=== PATIENT | male | born 1950 | race Caucasian/White ===

== ENCOUNTER 2019-09-16 09:54 | Inpatient (IN) | payer MEDICARE, BC ==
[~2019-09-16 09:54] MED LIST: Metoprolol Succinate 50 MG Tab.ER PO ONE
[2019-09-16] MEDS: Dextrose 5%-Lactated Ringers 1,000 ML IV SCH ×2 (11:30→18:26)
[2019-09-16] MEDS: Atropine/Diphenoxylate 0.025-2.5 MG Tab PO PRN ×2 (11:30→18:37)
[2019-09-16] MEDS: Azithromycin 250 MG Tab PO SCH (11:30)
[2019-09-16] MEDS: Acetaminophen 500 MG Tab PO PRN ×2 (11:37→17:24)
[2019-09-16] MEDS: Metoprolol Succinate 50 MG Tab.ER PO SCH (11:39)
[2019-09-16] MEDS: Omeprazole 20 MG Cap.CR PO SCH (11:41)
--- NOTE | 2019-09-16 13:15 | HP ---
CHIEF COMPLAINT: Profuse diarrhea. 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 He really did not think that much of it, but the diarrhea became much worse and so was very watery, occasionally formed, loose. No blood. No fever or chills. He had been tolerating fluids. He had been seen by Dr. Krishan Ibrahim, his primary care provider on 09/14/2019. He received 1 liter of IV fluids in the clinic. He denies any recent antibiotic use, except for one prophylactic dental administration, but not certain when that was. He has not traveled out of the country or out of the area. The patient was found to have Campylobacter enteritis by PCR detection method on 09/14/2019. He was negative for C. difficile. His white blood cell count at that time was 4.7, hemoglobin 12.5, MCV 98.1, platelets 199 with 69 segs, 14 lymphocytes. Sodium was 141, potassium 3.3, creatinine 1.2, BUN 18, glucose 106, CO2 of 19. LFTs normal. GFR 60. CRP elevated at 132.4 (normal being 8.0 or less). The patient had been taking many Imodium a day. Since then, the patient has had a difficult time keeping down fluids or Gatorade, feels very burpy, belchy, is becoming weaker. Diarrhea continues. His urine is very dark and he is weak. He had been started on both Flagyl 500 mg twice a day for 5 days and Cipro 250 mg 1 pill twice a day for 5 days. He was able to take those medications the day of clinic appointment as well as yesterday. This morning, he became weaker and came in to be seen by Leslie Mari PA-C in the clinic. No lab work was done. It is noted that his weight has stayed the same. He was noted to have slight rise of his pulse even though he is on a beta krzysztof, he did not take his beta krzysztof today. Today, he feels more weak and unsteady and not safe at home. He lives home alone. The Covid -19 epidemic is just arriving to [place], but he denies any risk factors for this. MEDICATIONS: Hytrin 2 mg one pill at bedtime, Toprol XL 100 mg 1 1/2 pills daily , levothyroxine 137 mcg one pill daily, HCTZ 25 mg one pill daily, Aciphex 20 mg one pill daily,MVI one pill daily, Cipro 250 mg one pill twice a day, Flagyl 500 mg one pill twice a day. ALLERGIES: He has to codeine, nausea, vomiting; hydrocodone causes tachycardia; morphine sulfate causes nausea and vomiting. PAST MEDICAL HISTORY: The patient has hypertension, BPH, chronic anemia. Last colonoscopy was in 2011, chronic iron deficiency, anemia, some duodenitis, he has had hyperlipidemia, obesity, he has had several lipomas from his body, osteoarthritis of his knee, diaphragmatic hernia, bursitis of the shoulders, BPH, elevated calcium score. Has had past abnormal EKG. 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 He has had excision of lipomas on 04/17/2014. He has had a TURP laser-assisted surgery on 09/12/2016. He has had a cholecystectomy, right inguinal hernia repair, right rotator cuff repair, tonsillectomy. FAMILY MEDICAL HISTORY: Mother has had hypertension. 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 Sister has had diabetes mellitus and thyroid problems. Maternal grandfather had prostate cancer. Paternal grandfather had prostate cancer. Daughter has migraines. He has 3 sons who are healthy. Sons had prostate cancer. SOCIAL HISTORY: The patient is . His had a chronic health problem. 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 The patient does not smoke. He does consume 3 to 4 beers per week. REVIEW OF SYSTEMS: The patient feels weak due to diarrhea as well as nauseated with not wanting to eat. He is not dizzy or lightheaded. He has not had chest pain. He does have burping, belching. He is not short of breath. He does have much of a rumbling and gurgling of his bowels. Skin, he has multiple lipomas throughout. He does have problems with chronic right hip pain. Mood is otherwise good. Neurologic, no numbness or tingling. His weight is the same. No fever. OBJECTIVE: Vital Signs: The patient's weight in the clinic is 200 pounds, which is 90.7 kg. Blood pressure is 132/82, temperature is 97.8, pulse is 80 (up from his usual of 60), O2 is 99. BMI is 30.41. HEENT:Head is round, LUKAS, Mouth dry mucus membranes, TM's normal, No cervical lymphadenopathy PULM: CTA CV: RRR without murmurs or bruits. ABD: BS +, soft, no HSM, many lipomas of varying size. SKIN Dry, no bruises NEURO morves all extremities, but is weak throughout PSYCH: Alert, oriented x 3, poor eye contact. EXT: Walks with limp from right hip pain. BACK: Not tender. LAB pending, EKG pending IMPRESSION: 1. Campylobacter enteritis, failed outpt therapy. 2. Dehydration, moderate due to Campylobacter enteritis. 3. Weakness due to Campylobacter enteritis and dehydration. 4. Hypertension. 5. Benign prostatic hypertrophy. 6. Gastroesophageal reflux disease. PLAN: The patient has failed outpatient therapy. He will be admitted to acute care. We will give D5 LR. We will repeat lab work on the patient for his electrolytes, CBC, CRP, check his magnesium level. We will switch him from Cipro to Zithromax 500 mg daily for 3 days, hopefully oral replacement, if not will need IV. We will try Lomotil to help with diarrhea instead of Imodium. We will offer physical assistance for the patient to help prevent falls as the patient does live home alone and is at higher risk. The patient's code level status is code level 1. We will place the patient on Lovenox for DVT prophylaxis. Time spent with the patient for admission was 50 minutes, reviewing chart. Complexity is moderate for the patient. GM09/16/2019 11:25:18 MODL: 09/16/2019 13:04:59 /[id number] RADHA
[2019-09-16 16:37] LABS: CHLORIDE,CL 105 mmol/L (98-107); SODIUM,NA 144 mmol/L (136-145)
[2019-09-16 16:47] LABS: ANION GAP 24.1 mmol/L (10-20)
[2019-09-16] MEDS ORDERED: Potassium Chloride 10 MEQ Tab.ER PO ONE (16:58)
[2019-09-16] MEDS: Enoxaparin 40 MG/0.4 ML Syringe SUBCUT SCH (17:23)
[2019-09-16] MEDS: Ondansetron 4 MG/2 ML SDV IVPUSH PRN (18:37)
[2019-09-17] MEDS: Dextrose 5%-Lactated Ringers 1,000 ML IV SCH ×3 (00:56→14:04)
[2019-09-17] MEDS: Levothyroxine 25 MCG Tab PO SCH (06:31)
[2019-09-17] MEDS: Levothyroxine 112 MCG Tab PO SCH (06:31)
[2019-09-17] MEDS: Omeprazole 20 MG Cap.CR PO SCH (06:32)
[2019-09-17] MEDS: Acetaminophen 500 MG Tab PO PRN ×4 (07:53→23:48)
[2019-09-17] MEDS: Multivitamins with Iron/Calcium/Folic Acid/Minerals Tab PO SCH (07:54)
[2019-09-17] MEDS: Metoprolol Succinate 50 MG Tab.ER PO SCH (07:54)
[2019-09-17] MEDS: Azithromycin 250 MG Tab PO SCH (07:54)
[2019-09-17 08:27] LABS: CHLORIDE,CL 110 mmol/L (98-107); SODIUM,NA 144 mmol/L (136-145)
[2019-09-17 08:31] LABS: ANION GAP 10.4 mmol/L (10-20)
--- NOTE | 2019-09-17 09:09 | PN ---
Progress Note for RAQUEL RUSSELL Date: 09/17/2019 Room #: VM.201 SUBJECTIVE: This is the patient's 2nd hospital day for being hospitalized with Campylobacter enteritis with moderate dehydration and elevated liver function tests. The patient states that he did not have any loose stools until yesterday afternoon and then had about 5 of them, but towards the end of it was starting to get a little bit more formed and towards the end he had just gas. He was able to eat some food and had some nausea, which he did receive some Zofran for. His urine is still noted to be quite dark. It was noted on his admission liver enzymes were elevated, but he does not have any liver soreness or discomfort. He has not had any previous elevated liver function tests before in reviewing his clinic chart. The patient also does have a headache today, which is a little bit more pronounced than usual. He comments he does have a daily headache for the most part. The patient says he is feeling like he is not as dehydrated and has a little bit more will to live than what he did yesterday. OBJECTIVE: Vital Signs: His weight is up 6 pounds today. Temperature is 36.6, pulse 63, which has more returned to his normal range. His blood pressure is 115/63. Psychiatric: His affect is still fairly serious. Heart: Regular rate and rhythm with 2/6 systolic ejection murmur. Lungs: Clear to auscultation. Abdomen: Bowel sounds are present. Abdomen is soft, nontender. No soreness of liver edge noted. Genitourinary: Urine was noted to be still darker in coloration. Skin: The patient's skin turgor has improved. LABORATORY DATA: On admission yesterday showed his white blood cell count 3.0, hemoglobin 12.7, platelets were 215 with 55 segs, 24 lymphs. Sodium was 144, potassium 3.1, creatinine 1.0, GFR greater than 60, magnesium 1.9, AST 81, ALT 112, alk phos 282, CRP was 8.0. Urine was dark with 80 units of ketones present, 5-10 red blood cells, occasional epithelial cells. IMPRESSION: 1. Campylobacter enteritis. 2. Moderate dehydration, slowly improving. 3. Hypokalemia. 4. Elevated liver function tests. 5. Headache. 6. Hypertension. 7. Valvular heart disease. 8. BPH PLAN: We will continue his current IV rate at the same level right now as he is not overhydrated and we hope that we will catch up today on his hydration status. We will see what his potassium is. He was given 1 oral potassium yesterday. He was switched to oral Zithromax for treatment of Campylobacter. He can have Zofran for nausea as well as Tylenol for headaches. To note, the patient is in isolation. GM09/17/2019 08:15:54 MODL: 09/17/2019 08:59:33 /[id number] MTDD
[2019-09-17] MEDS: Potassium Chloride 10 MEQ Tab.ER PO SCH (09:45)
[2019-09-17] MEDS: Atropine/Diphenoxylate 0.025-2.5 MG Tab PO PRN (13:48)
[2019-09-17] MEDS: Enoxaparin 40 MG/0.4 ML Syringe SUBCUT SCH (17:25)
[2019-09-18] MEDS: Dextrose 5%-Lactated Ringers 1,000 ML IV SCH (03:05)
[2019-09-18] MEDS: Omeprazole 20 MG Cap.CR PO SCH (06:32)
[2019-09-18] MEDS: Levothyroxine 25 MCG Tab PO SCH (06:32)
[2019-09-18] MEDS: Levothyroxine 112 MCG Tab PO SCH (06:32)
[2019-09-18 07:55] LABS: CHLORIDE,CL 110 mmol/L (98-107); SODIUM,NA 145 mmol/L (136-145)
[2019-09-18] MEDS: Potassium Chloride 10 MEQ Tab.ER PO SCH (07:55)
[2019-09-18] MEDS: Multivitamins with Iron/Calcium/Folic Acid/Minerals Tab PO SCH (07:55)
[2019-09-18] MEDS: Metoprolol Succinate 50 MG Tab.ER PO SCH (07:56)
[2019-09-18] MEDS: Azithromycin 250 MG Tab PO SCH (07:56)
[2019-09-18 07:57] LABS: ANION GAP 10.4 mmol/L (10-20)
[2019-09-18] MEDS ORDERED: Potassium Chloride 10 MEQ Tab.ER PO SCH (08:00)
[2019-09-18] MEDS: Ondansetron 4 MG/2 ML SDV IVPUSH PRN (08:03)
[2019-09-18] MEDS ORDERED: Sodium Chloride 0.9% 10 ML Syringe FLUSH PRN (08:21)
--- NOTE | 2019-09-18 08:54 | PN ---
Progress Note for RAQUEL RUSSELL Date: 09/18/2019 Room #: VM.201 SUBJECTIVE: This is the patient's 3rd hospital day. He has improved considerably from yesterday with appetite being better. Bowels were a little loose around noon yesterday, but then last evening were quite more formed. He did throw up this morning right after taking his pills, which he was somewhat surprised as he had not been feeling nauseated. The patient does have a history of chronic dyspepsia. To note, the patient's urine was checked yesterday because of concern with hydration status and blood present.. However, the patient had not been measuring his urine it was discovered and he did have a bladder scan that was normal. This morning, the scale is not working yet in the room. His weight had gone up 2.7 kg yesterday. OBJECTIVE: Vital Signs: Temperature is 36.7, pulse 68, blood pressure is 139/78, respiratory rate is 18, sats are 97%. Skin: The patient's skin turgor is back to normal. Heart: Regular rate and rhythm with 2/6 systolic ejection murmur. Lungs: Clear to auscultation. Abdomen: Bowel sounds present. Soft, nontender. Lower Extremities: No edema. Neurologic: He is more talkative, pleasant to visit with. LABORATORY DATA: His white blood cell count is 3.4, hemoglobin 10.5, which is stable, platelets are 204 with 51 segs, 27 lymphs. Sodium 145, potassium 3.4, stable, creatinine 1.0, GFR greater than 60, glucose 107, his total bili is 0.2, AST stable at 41, ALT stable at 73. Alk phos slightly improved at 154. CRP greatly improved to 2.3. Urine is pending yet today. IMPRESSION: 1. Campylobacter enteritis. 2. Dehydration, which is resolved. 3. Hypokalemia. 4. Elevated liver function tests, improving. 5. Chronic anemia, stable. 6. Hypertension. 7. Benign prostatic hyperplasia. 8. Dyspepsia. PLAN: We will saline lock his IV fluids. We will see how he does with oral intake. If he is able to tolerate oral intake after noon, we will allow him to be discharged home. It is felt since his diarrhea is greatly improved after his potassium dose today, he would not require any further dosing as well as he has completed his 3-day course of Zithromax. The patient will be given some Zofran at discharge as well as some Lomotil. Otherwise, may resume his usual home medications and the Lovenox will be able to be discontinued once he goes home. GM09/18/2019 08:30:11 MODL: 09/18/2019 08:49:35 /[id number] MTDD
[2019-09-18] MEDS ORDERED: Multivitamins with Iron/Calcium/Folic Acid/Minerals Tab PO ONE (08:58)
[2019-09-18] MEDS ORDERED: Potassium Chloride 10 MEQ Tab.ER PO ONE ×2 (09:02→09:53)
[2019-09-18] MEDS ORDERED: Azithromycin 250 MG Tab PO ONE (09:03)
[2019-09-18] MEDS ORDERED: Metoprolol Succinate 50 MG Tab.ER PO ONE (09:07)
--- NOTE | 2019-09-18 16:16 | DISCH ---
PRIMARY DIAGNOSES: 1. Campylobacter enteritis. 2. Dehydration, moderate. 3. Hypokalemia. 4. Chronic anemia. 5. Hematuria. 6. Hypertension. 7. Dyspepsia. 8. Elevated liver function tests. 9. Benign prostatic hyperplasia. SUMMARY OF HISTORY AND PHYSICAL: Patient is a 69-year-old male who presented to the clinic on 09/16/2019 with persistent diarrhea. 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 He was started on Cipro 250 mg b.i.d. and Flagyl 500 mg b.i.d. on 09/13. Sneads a little bit better on 09/14. By 09/15, he was having profound diarrhea, which was very uncomfortable. He had a difficult time with oral intake. As he did not feel comfortable, patient had a liter of IV fluids on 09/13. Lab work on 09/13 did show his potassium was slightly low at 3.3, creatinine was 1.2. White blood cell count was 4.7, hemoglobin 12.5. The patient had been taking Imodium as an outpatient. The patient on physical exam was noted to have a very sunken skin with weakness required assistance. He had been holding his home blood pressure medications and diuretics, so the blood pressure did not look bad, but his pulse has gone up into the 80s where it is normally in the 60s, and the patient was felt to have failed outpatient therapy, so therefore in need of inpatient care. SUMMARY OF INPATIENT CARE: Patient received IV hydration. His initial lab on admission showed white blood cell count 3.0, hemoglobin 12.7, platelets 212. Sodium 144, potassium 3.1, creatinine 1.0, GFR greater than 60. Glucose 84, lactic acid 1.4, magnesium 1.9, total bilirubin 0.2, AST 81, ALT 112, alkaline phosphatase 282. CRP 8.0. The patient was switched to oral Zithromax per current recommendations of 500 mg daily for 3 days. The patient did receive oral potassium replacement. It was noted that the patient's urine was quite dark in coloration. Sample on the day of admission showed it was dark, cloudy, protein 30 mg, 80 mg of ketones, small urobilinogen, 5 to 10 red blood cells. The patient received D5 LR for IV therapy. To note, patient's pulse did improve by next day, he still was having some loose stools and still some nausea. Patient's urine output was not accurately monitored. By next morning, his white blood cell count did drop slightly to 2.4, hemoglobin was 10.6, it is felt to be rehydration. Potassium is improved to 3.4, creatinine is 1.0, GFR greater than 60. LFTs had improved with AST 42, ALT 72, alkaline phosphatase 182. The patient's bowels did improve significantly. He did receive Lomotil as well as some Zofran for some nausea. On morning of 09/17, he did have 1 episode of emesis but it came, he commented, without warning, so unclear if it was just the pills that were given to him and/or other aromas possibly present in the room. LABORATORY DATA: His lab work on 09/17 shows hemoglobin stable at 10.5, white blood cell count 3.4. Sodium was 145, potassium 3.4, creatinine 1.0. GFR greater than 60. LFTs had slightly improved with AST 41, ALT 73, alkaline phosphatase improved at 154. CRP improved to 2.3. The patient's IV had been stopped and he was allowed just to have oral intake, which he did well with lunch. Urinalysis was rechecked to make certain ketones had resolved, which they had. He did have 5 to 10 red blood cells still present. The patient was felt safe to be discharged to home. To note, patient does live home alone and that was also one of the factors of placing him in the hospital. MEDICATIONS: At the time of discharge will be: 1. Tylenol 500 mg 2 q.4 hours p.r.n. 2. AcipHex 20 mg 1 pill daily. 3. Hydrochlorothiazide 25 mg 1 pill daily. 4. Levothyroxine 137 mcg 1 pill daily. 5. Metoprolol succinate 100 mg 1-1/2 pills a day. 6. Terazosin 2 mg at bedtime. 7. Multivitamin 1 pill daily. 8. Lomotil 2 tablets q.i.d. p.r.n. diarrhea. FOLLOWUP: The patient is to follow up with Dr. Bassem Barber in 1 week's time in the clinic. He will need monitoring of his CBC, CMP for both potassium and liver enzymes, also urinalysis. The patient is full code level at the time of discharge. To note, patient had been treated on Lovenox for DVT prophylaxis while he was hospitalized. Also, blood cultures have been obtained at the time of admission, which showed no growth after 2 days. His EKG had been done also on admission, but the report is not scanned into the chart yet, but it did show sinus rhythm with no concerning findings. His diet can be as tolerated. GM09/18/2019 13:16:29 MODL: 09/18/2019 16:08:52 /[id number]
== END 2019-09-18 13:50 | disposition home or self-care (01) | DRG 373 ==
LOC: VM.MS 09:55
PROVIDERS: ADMIT Family Medicine; ATTEND Family Medicine
DX: A04.5 Campylobacter enteritis (principal); I10 Essential (primary) hypertension; N40.0 Benign prostatic hyperplasia without lower urinary tract symptoms; D64.9 Anemia, unspecified; K21.9 Gastro-esophageal reflux disease without esophagitis; R53.1 Weakness; E86.0 Dehydration; E87.6 Hypokalemia; R51 Headache; R31.9 Hematuria, unspecified
CPT/HCPCS: 36415; 80053; 81001; 83605; 83735; 85025; 86140; 87040; 93005; A9270-GY; J1650; J2405; J7121